=== PATIENT | male | born 1980 | race Caucasian/White ===

== ENCOUNTER 2021-04-22 20:56 | Emergency (ER) | payer OTHER ==
[2021-04-22] MEDS ORDERED: HYDROCODON-ACE1 EAC4 PO (21:52)
== END 2021-04-22 22:08 | disposition home or self-care (01) ==
LOC: ER1 20:56
DX: S42.034A Nondisplaced fracture of lateral end of right clavicle, initial encounter for closed fracture (principal); F17.210 Nicotine dependence, cigarettes, uncomplicated; W19.XXXA Unspecified fall, initial encounter; Y92.009 Unspecified place in unspecified non-institutional (private) residence as the place of occurrence of the external cause
CPT/HCPCS: 71045; 73030; 96372; 99283; J2270

== ENCOUNTER → 2021-09-21 | Day surgery (SDC) | payer OTHER ==
[~2021-09-21] MED LIST: HYDROCODON-ACE1 EAC4 PO; IBUPROFEN800 MG PO; PERCOCET 7.5-31 EACH PO; TORADOL 10 MG T10 MG PO
== END | disposition home or self-care (01) ==
LOC: OR 05:31
DX: S42.031K Displaced fracture of lateral end of right clavicle, subsequent encounter for fracture with nonunion (principal); W06.XXXD Fall from bed, subsequent encounter; Z20.822 Contact with and (suspected) exposure to COVID-19; Z72.0 Tobacco use
CPT/HCPCS: 73000; 76000; J0171; J0690; J1100; J1170; J1885; J2250; J2405; J2704; J2795; J3010